=== PATIENT | male | born 1980 | race Caucasian/White ===

== ENCOUNTER 2017-05-26 05:54 | Day surgery (SDC) | payer OTHER ==
[2017-05-25 13:29] VITALS: BMI 22.2
[2017-05-26] MEDS ORDERED: MIDAZOLAM HCL 2 MG/2 ML SINGLE DOSE VIAL ONE ×2 (07:17→07:48)
[2017-05-26] MEDS ORDERED: PROPOFOL 20 ML ONE ×2 (07:17→07:44)
[2017-05-26] MEDS ORDERED: LIDOCAINE HCL/PF 2% SDV 5ML VIAL ONE (07:19)
[2017-05-26] MEDS ORDERED: BUPIVACAINE HCL/PF 2.5 MG/ML - 30 ML VIAL IJ ONE (07:21)
[2017-05-26] MEDS ORDERED: LIDOCAINE HCL 2% (20ML MULTI-DOSE VIAL) NR ONE (07:21)
[2017-05-26] MEDS ORDERED: ceFAZolin SODIUM 1 GM VIAL ONE (07:35)
[2017-05-26] MEDS ORDERED: DEXAMETHASONE SOD PHOSPHATE 4 MG/1 ML VIAL ONE (07:56)
[2017-05-26] MEDS ORDERED: ONDANSETRON 4 MG/2 ML VIAL ONE (07:56)
[2017-05-26 08:49] VITALS: TEMP 98
[2017-05-26 09:21] VITALS: BP 112/67; PULSE 74
--- NOTE | 2017-05-27 07:43 | OP ---
DATE OF OPERATION: 05/26/2017 PREOPERATIVE DIAGNOSIS: Left index finger middle phalanx fracture. POSTOPERATIVE DIAGNOSIS: Left index finger middle phalanx fracture. OPERATIVE PROCEDURE: Closed reduction and percutaneous pinning of left index finger middle phalanx fracture. SURGEON: Kali Marquez MD FITTING ROOM INSPECTOR: BRANDI Bansal ANESTHESIA: Local with sedation. COMPLICATIONS: None. ESTIMATED BLOOD LOSS: Minimal. INDICATION FOR PROCEDURE: The patient is a 36-year-old male with the above finding, indicated for operative treatment. Risks, benefits, and alternatives were discussed with the patient at length, and proper informed consent was obtained. DESCRIPTION OF PROCEDURE: After proper identification of the patient and correct operative site, the patient was brought to the operating room and placed supine on the operating table. Prominences well padded. Sedation was given by the anesthesiologist. Local anesthesia was given with 2% lidocaine. Left upper extremity was prepped and draped in the usual sterile fashion. Well-padded tour was placed with a sterile prep. Tourniquet was not inflated throughout this procedure. Under live fluoroscopy, the left index finger was manipulated into an anatomically aligned position. Three crossing K-wires were then placed from a proximal to distal direction across the fracture site percutaneously. This achieved secure stable fixation of the fracture with proper alignment of the fracture as well as placement and sizing of the hardware, confirmed in multiple planes using live fluoroscopy. Pins were bent and cut short outside of the skin. Sterile dressings were applied. PIP extension splint was placed onto the long finger which is being treated for a boutonniere deformity, and a radial gutter splint was placed on the index and long fingers as a fiberglass splint. Patient was reversed from anesthesia and brought to recovery in stable condition. He tolerated the procedure well. BRANDI Bansal, the railway yard assistant, was interval throughout the procedure. Procedure could not have been performed without a skilled operative railway yard assistant. KALI MARQUEZ M.D. [id number]
== END 2017-05-26 09:28 | disposition home or self-care (01) ==
LOC: FASU 05:54
PROVIDERS: ATTEND Orthopaedic Surgery Hand Surgery
PROC: 0PSV34Z Reposition Left Finger Phalanx with Internal Fixation Device, Percutaneous Approach (ICD-10-PCS; principal; 2017-05-26 07:49)
DX: S62.611A Displaced fracture of proximal phalanx of left index finger, initial encounter for closed fracture (principal); X58.XXXA Exposure to other specified factors, initial encounter; Y93.9 Activity, unspecified; Y92.9 Unspecified place or not applicable
CPT/HCPCS: 73130-TC-LT